=== PATIENT | male | born 1970 | race Caucasian/White ===

== ENCOUNTER 2016-05-23 11:40 | Day surgery (SDC) | payer BC ==
[~2016-05-23] VITALS: Ht 182.9 cm; Wt 99.8 kg
[~2016-05-23 11:40] MED LIST: FLEXERIL10 MG PO; MOTRIN600 MG PO; THRIVITE RX TA1 EACH PO; VICODIN,LORT1 TABLET PO
[2016-05-23 12:19] VITALS: BP 134/86
[2016-05-23] MEDS ORDERED: NORCO 5/3251 TABLET PO (16:55)
[2016-05-23 18:15] VITALS: BP 152/103
[2016-05-23 19:10] VITALS: BP 139/94
== END 2016-05-23 19:24 | disposition home or self-care (01) ==
LOC: SDC 11:40
PROC: 0FT44ZZ Resection of Gallbladder, Percutaneous Endoscopic Approach (ICD-10-PCS; principal; 2016-05-23)
DX: K80.10 Calculus of gallbladder with chronic cholecystitis without obstruction (principal); Z87.891 Personal history of nicotine dependence
CPT/HCPCS: 88304; C1769; J0330; J2405; J2710; J3010; S0020

== ENCOUNTER 2016-05-26 19:06 | Emergency (ER) | payer BC ==
[~2016-05-26] VITALS: Ht 182.9 cm; Wt 112.7 kg
[~2016-05-26 19:06] MED LIST changes: +NORCO 5/3251 TABLET PO
[2016-05-26 19:45] LABS: HEMATOCRIT 44.2 % (38.0-50.0); MCH 31.3 PG (29.0-34.0); MCHC 35.7 G/DL (30.0-36.0); MCV 87.7 FL (86-99); MEAN PLAT.VOLUME 10.5 uM^3 (9.0-12.4); PLATELET COUNT 222 K/uL (156-360); RBC DIS.WIDTH-SD 37.7 % (39-53); RED BLOOD COUNT 5.04 M/uL (4.00-5.50); WHITE BLOOD COUNT 8.3 K/uL (4.1-10.2)
[2016-05-26 19:58] LABS: CHLORIDE 107 mEq/L (99-109); POTASSIUM 4.3 mEq/L (3.7-5.4); SODIUM 143 mEq/L (136-147)
[2016-05-26 20:02] LABS: ANION GAP 8 MEQ/L (2-14); GLUCOSE 81 mg/dL (70-99)
[2016-05-26 20:04] LABS: GFR ESTIMATE (CALCULATED) > 59 mL/min/
[2016-05-26 20:05] LABS: UREA NITROGEN (BUN) 13 mg/dL (9-23)
[2016-05-26 20:08] LABS: TROP-I INTERPRETATION NEGATIVE; TROPONIN-I < 0.01 ng/mL (0.0-0.30)
[2016-05-26 20:17] LABS: D-DIMER ELISA 0.55 mg/L FEU (< 0.57)
[2016-05-26 20:51] LABS: INTER. NORMALIZED RATIO 1.1; PROTHROMBIN TIME 10.7 (9.2-11.2); PTT 28.2 (25-32)
[2016-05-26 22:43] VITALS: BP 123/78
== END 2016-05-26 22:49 | disposition home or self-care (01) ==
LOC: EME 19:06
DX: R06.00 Dyspnea, unspecified (principal); Z87.891 Personal history of nicotine dependence
CPT/HCPCS: 71020; 71275; 80048; 84484; 85027; 85379; 85610; 85730; 93005; 99281; 99285; J7030